=== PATIENT | male | born 1945 | race Caucasian/White ===

== ENCOUNTER 2018-12-03 07:26 | Observation (INO) ==
--- NOTE | 2018-11-27 08:05 | EKG Report ---
Test Performed on : 11/27/2018 07:50:25 AM Test Reason : PAT Blood Pressure : / mmHG Vent. Rate : 057 BPM Atrial Rate : 057 BPM P-R Int : 256 ms QRS Dur : 102 ms QT Int : 462 ms P-R-T Axes : 046 002 016 degrees QTc Int : 449 ms Sinus bradycardia. with 1st degree AV block. with premature atrial complexes. in a pattern of bigemin y. Septal infarct , age undetermined Abnormal ECG No previous ECGs available Unconfirmed Result
[2018-11-27 08:11] LABS: URINE SOURCE CLEAN CATCH
[2018-11-27 08:15] LABS: BILIRUBIN URINE NEGATIVE (NEGATIVE); BLOOD URINE NEGATIVE (NEGATIVE); COLOR YELLOW; GLUCOSE URINE TRACE mg/dL (NEGATIVE); KETONE URINE NEGATIVE (NEGATIVE); LEUKOCYTES URINE NEGATIVE (NEGATIVE); NITRITE URINE NEGATIVE (NEGATIVE); PH URINE 5.5; PROTEIN URINE 50 mg/dL (NEGATIVE); SP GRAVITY URINE 1.027; TURBIDITY URINE CLEAR (CLEAR); UROBILINOGEN URINE 2 mg/dL (NORMAL)
[2018-11-27 08:16] LABS: BASO# 0.06 X1000 (0.0-0.2); BASO% 0.8 % (0.0-0.8); EOS# 0.24 X1000 (0.0-0.7); EOS% 3.3 % (0.0-10.0); HEMATOCRIT 46.3 % (42.0-52.0); HEMOGLOBIN 14.9 g/dL (14.0-18.0); IMM GRAN# 0.03 X1000 (0.0-0.04); IMM GRAN% 0.4 % (0.0-0.5); LYMPH# 1.36 X1000 (1.2-3.4); LYMPH% 18.9 % (20.5-51.1); MCH 28.8 PG (27-31); MCHC 32.2 g/dL (33-37); MCV 89.4 FL (81-99); MONO# 1.05 X1000 (0.11-0.59); MONO% 14.6 % (1.7-9.3); MPV 9.5 FL (7.4-10.4); NEUT# 4.44 X1000 (1.4-6.5); PLT 268 X1000 (130-400); RBC 5.18 XMIL (4.7-6.1); RDW 14.3 % (11.5-14.5); WBC 7.18 X1000 (4.8-10.8)
[2018-11-27 08:17] LABS: UR EPITHELIAL CELLS <10 /HPF (<10); URINE BACTERIA NEGATIVE /HPF; URINE RBC <10 /HPF (<10); URINE WBC <10 /HPF (<10)
[2018-11-27 08:22] LABS: INR 0.96; PROTIME 13.6 Seconds (11.0-16.0)
[2018-11-27 08:23] LABS: PTT 27.7 Seconds (22.3-41.8)
[2018-11-27 08:55] LABS: CALCIUM 9.7 mg/dL (8.8-10.2); CREATININE 1.3 mg/dL (0.7-1.2); POTASSIUM 4.6 mmol/L (3.5-5.1)
[2018-12-03] MEDS ORDERED: CELEBREX ONE (07:46)
[2018-12-03] MEDS ORDERED: LR 1,000 ML ONE (07:46)
[2018-12-03] MEDS ORDERED: COLACE ONE (07:46)
[2018-12-03] MEDS ORDERED: LYRICA ONE (07:46)
[2018-12-03] MEDS ORDERED: REGLAN ONE (07:46)
[2018-12-03] MEDS ORDERED: PEPCID ONE (07:46)
[2018-12-03] MEDS ORDERED: KEFZOL 2 GM/D5W 2 GM/50 ML IVPB ONE (07:46)
[2018-12-03] MEDS ORDERED: FENTANYL ONE (08:31)
[2018-12-03] MEDS ORDERED: QUELICIN (DOSE) ONE (08:32)
[2018-12-03] MEDS ORDERED: XYLOCAINE-MPF 2% ONE (08:32)
[2018-12-03] MEDS ORDERED: ROBINUL ONE (08:32)
[2018-12-03] MEDS ORDERED: DIPRIVAN 1% ONE ×2 (08:33→09:57)
[2018-12-03] MEDS ORDERED: MARCAINE 0.25% PF ONE (09:14)
[2018-12-03] MEDS ORDERED: DURAMORPH ONE (09:14)
[2018-12-03] MEDS ORDERED: TORADOL ONE (09:14)
[2018-12-03] MEDS ORDERED: VANCOMYCIN ONE (09:14)
[2018-12-03] MEDS ORDERED: SODIUM CHLORIDE 0.9% ONE (09:15)
[2018-12-03] MEDS ORDERED: CYKLOKAPRON 1,000 MG/NS 1,000 MG/100 ML IVPB ONE ×2 (09:15)
[2018-12-03] MEDS ORDERED: EXPAREL 1.3% ONE (09:15)
[2018-12-03] MEDS ORDERED: NEOSPORIN G.U. IRRIGANT ONE (09:15)
[2018-12-03] MEDS ORDERED: XYLOCAINE 2% JELLY ONE (10:00)
[2018-12-03] MEDS ORDERED: ZOFRAN ONE (10:17)
[2018-12-03] MEDS ORDERED: OFIRMEV 1000 MG/ISOTONIC SOLN 1,000 MG/100 ML BOTTLE ONE (10:17)
[2018-12-03] MEDS ORDERED: EPHEDRINE ONE (10:33)
[2018-12-03 10:37] LABS: URINE SOURCE CATH
[2018-12-03 10:44] LABS: BILIRUBIN URINE NEGATIVE (NEGATIVE); BLOOD URINE NEGATIVE (NEGATIVE); COLOR ORANGE; GLUCOSE URINE TRACE mg/dL (NEGATIVE); KETONE URINE NEGATIVE (NEGATIVE); LEUKOCYTES URINE NEGATIVE (NEGATIVE); NITRITE URINE NEGATIVE (NEGATIVE); PH URINE 5.5; PROTEIN URINE 30 mg/dL (NEGATIVE); SP GRAVITY URINE 1.027; TURBIDITY URINE TURBID (CLEAR); UROBILINOGEN URINE NORMAL (NORMAL)
[2018-12-03 10:45] LABS: UR EPITHELIAL CELLS <10 /HPF (<10); URINE BACTERIA NEGATIVE /HPF; URINE RBC <10 /HPF (<10); URINE WBC <10 /HPF (<10)
[2018-12-03] MEDS ORDERED: NS 1,000 ML ONE (11:38)
--- NOTE | 2018-12-03 11:40 | OPERATIVE NOTE ---
PROCEDURE DATE: 12/03/2018 PREOPERATIVE DIAGNOSIS: Degenerative joint disease, left knee. POSTOPERATIVE DIAGNOSIS: Degenerative joint disease, left knee. PROCEDURE PERFORMED: Left total knee replacement. SURGEON: Ashkan Perez MD. WAGON DRIVER: JOHAN Olvera. Mr. Gonzalez was necessary for proper retraction and manipulation during the case for exposure. ANESTHESIA: Spinal. COMPLICATIONS: None. PROCEDURE IN DETAIL: This 72-year-old male presents for a left total knee replacement. Risks, benefits, and no guarantees were discussed, and he is willing to proceed. He was taken to the operating room and satisfactory anesthesia obtained. The left knee was prepped and draped in the usual sterile fashion. A time-out was taken to confirm operative site, procedure, and patient. The leg was wrapped with an Esmarch and tourniquet inflated to 300 mmHg. A midline incision was made over the front of the knee, followed by a quad tendon sparing arthrotomy. The patella was everted and resurfaced with freehand technique. With the patella subluxed laterally, the knee was flexed. An intramedullary hole was made in the distal femur. Distal femoral cutting block was secured in 5 degrees of valgus and the distal femoral resection made. The femur was sized to a size 6 DePuy Attune femoral implant. The 4 in 1 block was secured. The anterior, posterior, and chamfer cuts were sequentially made. The notch was created for a posterior stabilized design using the provided notch guide. Any remaining osteophytes were debrided from the femur. Afterwards, the knee was flexed. A PCL retractor was placed behind the tibia to protect the neurovascular bundle. The tibial cutting block was secured with extramedullary alignment and the tibial resection made. Flexion and extension gaps were roughly equal with the 6 mm spacer. The tibia was sized to a size 7 tibial tray. Trial reduction was performed with a size 7 tibial tray, a 6 mm poly spacer, and a size 6 femoral implant, with good range of motion and stability. The patella was sized to a 38 medialized dome patella. The drill holes were placed for the patellar implant and femoral implants, and the trial components removed. The bony surfaces were thoroughly irrigated with pulsatile lavage. Cement with a gram of vancomycin was then utilized to cement a DePuy Attune size 7 rotating platform tibial baseplate, a size 6 left posterior stabilized femoral component, and a 38 medialized dome patella. While the cement cured, excess cement was removed with a Lutts elevator. The joint capsule was injected with Exparel for pain management. A Hemovac drain was placed. After curing the cement, a size 6 mm thick posterior stabilized polyethylene bearing was inserted into the knee and the knee reduced. Final range of motion was 0 to 130 degrees with midline patellar tracking. The arthrotomy was copiously irrigated and closed over the drain with #1 Vicryl in the arthrotomy, 2-0 Vicryl in the subcutaneous, and skin kaitlin on the skin edges. Sterile dressings completed the closure. The patient was recovered from anesthesia and transferred to the recovery room in stable condition. No intraoperative complications were noted. Instrument count and sponge count were correct at the time of closure. cc: Yonatan Perez MD
--- NOTE | 2018-12-03 12:10 | Diag Imaging Result Doc PS360 ---
EXAM: KNEE 1-2 VIEWS-LEFT HISTORY: post op total knee TECHNIQUE: Left knee two views COMPARISON: None. FINDINGS: There has been recent orthopedic replacement of the left knee. There are anterior skin kaitlin and there is a superior surgical drain. No fracture. No dislocation. IMPRESSION: Recently replaced left knee with good alignment to the femoral and tibial components. Electronically signed by Klever Kirby 12/03/2018 12:08 PM
[2018-12-03] MEDS ORDERED: OXY IR PO PRN ×2 (12:15)
[2018-12-03] MEDS ORDERED: ZOFRAN IV PRN (12:15)
[2018-12-03] MEDS ORDERED: MORPHINE IV PRN ×3 (12:15)
[2018-12-03] MEDS ORDERED: ZOFRAN ODT PO PRN (12:15)
[2018-12-03] MEDS ORDERED: OXY IR ONE (12:18)
[2018-12-03] MEDS: NS 1,000 ML IV SCH ×2 (12:55→21:31)
[2018-12-03] MEDS: ULTRAM PO SCH ×2 (12:56→17:20)
--- NOTE | 2018-12-03 13:49 | PROGRESS NOTE ---
DATE: 12/03/2018 SUBJECTIVE DATA: Mr. Pan was seen on postop day 0 of his left total knee arthroplasty. He reports that he is not having any pain at this time. He reports that his knee feels much better already. OBJECTIVE DATA: The patient is sitting up in the bed, eating dinner. There is good sensation to the left lower extremity. There are good pedal pulses. There is negative Homans sign. Bandages are clean and dry. There is good capillary refill in the toes. Vital signs show some bradycardia on the pulse oximeter as well as radial pulse. ASSESSMENT: 1. Degenerative joint disease of the left knee with total knee arthroplasty. 2. Bradycardia. PLAN: We plan on keeping Mr. Pan overnight in the hospital. We will place him on telemetry for his low heart rate. We will likely discharge him in the morning. Dictated by JOHAN Olvera for Yonatan Perez MD cc: JOHAN Olvera MD
[2018-12-03] MEDS: TYLENOL PO SCH (16:34)
[2018-12-03] MEDS: KEFZOL 2 GM/D5W 2 GM/50 ML IVPB IV SCH (16:37)
[2018-12-03] MEDS: GLUCOPHAGE PO SCH (17:19)
[2018-12-03] MEDS ORDERED: PNEUMOVAX 23 IM ONE (17:45)
[2018-12-03] MEDS ORDERED: LOPRESSOR PO SCH (21:00)
[2018-12-03] MEDS ORDERED: PRAVACHOL PO SCH (21:00)
[2018-12-03] MEDS ORDERED: IMDUR PO SCH (21:00)
[2018-12-03] MEDS ORDERED: ICAR-C PLUS PO SCH (21:00)
[2018-12-03] MEDS: COLACE PO SCH (21:26)
[2018-12-03] MEDS: CELEBREX PO SCH (21:27)
[2018-12-03] MEDS: PERIDEX MT SCH (21:30)
[2018-12-04] MEDS: TYLENOL PO SCH ×2 (00:10→05:53)
[2018-12-04] MEDS: ULTRAM PO SCH ×2 (00:10→05:53)
[2018-12-04] MEDS: KEFZOL 2 GM/D5W 2 GM/50 ML IVPB IV SCH (01:49)
[2018-12-04] MEDS: NS 1,000 ML IV SCH (04:41)
[2018-12-04 05:57] LABS: HEMATOCRIT 37.5 % (42.0-52.0); HEMOGLOBIN 12.2 g/dL (14.0-18.0)
[2018-12-04 06:11] LABS: CREATININE 1.3 mg/dL (0.7-1.2); POTASSIUM 4.2 mmol/L (3.5-5.1)
--- NOTE | 2018-12-04 07:52 | PROGRESS NOTE ---
DATE: 12/04/2018 SUBJECTIVE: Mr. Pan is seen today on 12/04/2018 status post total knee replacement. At the present time, he is afebrile with stable vital signs. He reports minimal discomfort. There are no signs of infection, bleeding or DVT. He can be mobilized today and discharged home. He was put on telemetry. His heart rate is back up. He is on a beta monique which would account for his slightly slower than average heart rate. He is completely asymptomatic from a cardiac standpoint. He is discharged home today on his usual medicines consisting of his heart blood pressure medicines, as well as Plavix and aspirin for DVT prophylaxis. We will follow up with him in 12 days. He will receive home therapy. I have placed him on [place] 10 as needed for pain, and Bactrim DS b.i.d. for 7 days for prophylaxis. He is to return in the interim for any worsening signs or symptoms. cc: Yonatan Perez MD
[2018-12-04] MEDS: PERIDEX MT SCH (08:19)
[2018-12-04] MEDS: GLUCOPHAGE PO SCH (08:20)
[2018-12-04] MEDS: COLACE PO SCH (08:20)
[2018-12-04] MEDS: CELEBREX PO SCH (08:21)
[2018-12-04 08:32] VITALS: BP 113/92
[2018-12-04] MEDS ORDERED: ASPIRIN PO SCH (09:00)
[2018-12-04] MEDS ORDERED: LOPRESSOR PO SCH (09:00)
[2018-12-04] MEDS ORDERED: NORVASC PO SCH (09:00)
[2018-12-04] MEDS ORDERED: PEPCID PO SCH (09:00)
[2018-12-04] MEDS ORDERED: IMDUR PO SCH (09:00)
[2018-12-04] MEDS ORDERED: MICARDIS PO SCH (09:00)
[2018-12-04] MEDS ORDERED: ICAR-C PLUS PO SCH (09:00)
[2018-12-04] MEDS ORDERED: PROTONIX PO SCH (21:00)
[2018-12-05] MEDS ORDERED: PROTONIX PO SCH (09:00)
[2018-12-05] MEDS ORDERED: PLAVIX PO SCH (09:00)
== END 2018-12-04 11:43 | disposition home health service (06) ==
LOC: OR 07:26 → 4N 07:26
PROVIDERS: ADMIT Orthopaedic Surgery Adult Reconstructive Orthopaedic Surgery; ATTEND Orthopaedic Surgery Adult Reconstructive Orthopaedic Surgery
CPT/HCPCS: 73560; 80048; 81001; 82948; 85014; 85018; 85025; 85610; 85730; 86850; 86900; 86901; 88305; 88311; 93005; 93010; 94761; 94799; 97110; 97162; A9270; C9290; J0131; J0330; J0690; J1885; J2274; J2275; J2405; J3010; J3370; J7030; J7120; Q9974; S0020; XXXXX